=== PATIENT | female | born 1955 | race Caucasian/White ===

== ENCOUNTER 2018-12-04 18:19 | Emergency (ER) | payer OTHER ==
[2018-12-04] MEDS ORDERED: DIPH/PERTUSS(ACELL)/TETANUS VAC/PF 0.5 ML SYR (>=10YO) IM ONE (18:37)
[2018-12-04] MEDS ORDERED: LIDOCAINE 1% INJ-PF (10 MG/ML) 30 ML SDV INJ ONE (18:38)
--- NOTE | 2018-12-04 18:43 | ER Document Report ---
HPI - HPI Patient complains to provider of: laceration foot Time Seen by Provider: 12/04/18 18:37 Onset: Just prior to arrival Onset/Duration: Sudden Quality of pain: No pain Context: 63-year-old female presents emergency department with laceration to the top of her right foot. Reports a lawnmower fell on her foot. Reports they just moved here from [place] and they were moving the lawnmower. Is unsure of when her last tetanus was no active bleeding. Patient declines pain medication reports she is not hurting. Patient was able to ambulate without problems. Associated Symptoms: None Exacerbated by: Denies Relieved by: Denies Similar symptoms previously: No Recently seen / treated by doctor: No Past Medical History - General Information source: Patient - Social History Smoking Status: Unknown if Ever Smoked Frequency of alcohol use: None Drug Abuse: None Lives with: Family Family History: None Patient has suicidal ideation: No Patient has homicidal ideation: No Neurological Medical History: Reports: Hx Migraine Surgical Hx: Negative Vertical Provider Document - CONSTITUTIONAL Agree With Documented VS: Yes Exam Limitations: No Limitations General Appearance: WD/WN, No Apparent Distress - HEENT HEENT: Atraumatic, Normocephalic - NECK Neck: Supple - RESPIRATORY Respiratory: No Respiratory Distress - CARDIOVASCULAR Cardiovascular: Regular Rate - MUSCULOSKELETAL/EXTREMETIES Musculoskeletal/Extremeties: MAEW, FROM, Non-Tender - NEURO Level of Consciousness: Awake, Alert, Appropriate Motor/Sensory: No Motor Deficit - DERM Integumentary: Warm, Dry, Laceration - Approximately 15 mm horizontal vshaped with some skin avulsion laceration to the top of her right foot Course - Re-evaluation Re-evalutation: 12/04/18 19:05 Ankle X-Ray 12/04/18 18:37 IMPRESSION: NEGATIVE STUDY OF THE RIGHT ANKLE. NO RADIOGRAPHIC EVIDENCE OF ACUTE INJURY. Foot X-Ray 12/04/18 18:37 IMPRESSION: NEGATIVE STUDY OF THE RIGHT FOOT. NO RADIOGRAPHIC EVIDENCE OF ACUTE INJURY. 12/04/18 19:22 63-year-old female presents with laceration to the top of her right foot. She reports they are just moved to [place] and she dropped a lawnmower on it. Unsure last tetanus. X-rays negative for fracture. Patient was repaired with 5 sutures. She was instructed on signs and symptoms of infection and also instructed to keep the area clean and stay out of water. She verbalized understanding to all instructions. Dictation of this chart was performed using voice recognition software; therefore, there may be some unintended grammatical errors. - Vital Signs Vital signs: Temp Pulse Resp BP Pulse Ox 98.3 F 84 16 125/68 97 12/04/18 18:28 12/04/18 18:28 12/04/18 18:28 12/04/18 18:28 12/04/18 18:28 - Diagnostic Test Radiology reviewed: Image reviewed, Reports reviewed Procedures - Laceration/Wound Repair Right Foot Time completed: 19:23 Wound length (cm): 1.5 - He has been Wound's Depth, Shape: Superficial Anesthetic type: 1% Lidocaine Volume Anesthetic (mLs): 3 Wound Repaired With: Sutures Suture Size/Type: 4:0, Nylon Post-procedure NV exam normal: No Complications: No Adult Front & Back picture: 1 - 1.5 cm v shape laceration repaired with 5 sutures Discharge - Discharge Clinical Impression: Laceration of right foot Qualifiers: Encounter type: initial encounter Qualified Code(s): S91.311A - Laceration without foreign body, right foot, initial encounter Condition: Stable Disposition: HOME, SELF-CARE Instructions: Laceration Care (OM), Tetanus Immunization Given ([facility]) Additional Instructions: *You have been treated for a laceration on the top of your right foot Your x-ray was negative for a fracture *Monitor the laceration site for signs of infection such as increasing pain, redness, swelling, warmth *Keep the area clean, Take ibuprofen as indicated for pain *Follow-up here in 10 days for suture removal *Return to ED for signs of infection, worsening condition, changes, needs Forms: Elevated Blood Pressure
--- NOTE | 2018-12-04 19:00 | RADIOLOGY REPORT (SQ) ---
EXAM DESCRIPTION: FOOT RIGHT COMPLETE COMPLETED DATE/TIME: 12/04/2018 6:50 pm REASON FOR STUDY: laceration hit with mower COMPARISON: None. NUMBER OF VIEWS: Three views. TECHNIQUE: AP, lateral and oblique radiographic images acquired of the right foot. LIMITATIONS: None. FINDINGS: MINERALIZATION: Normal. BONES: No acute fracture or dislocation. No worrisome bone lesions. JOINTS: No effusions. SOFT TISSUES: No soft tissue swelling. No foreign body. OTHER: No other significant finding. IMPRESSION: NEGATIVE STUDY OF THE RIGHT FOOT. NO RADIOGRAPHIC EVIDENCE OF ACUTE INJURY. TECHNICAL DOCUMENTATION: JOB ID: [id number] [employer]- All Rights Reserved Reading location - IP/workstation name: [email or web address]
--- NOTE | 2018-12-04 19:00 | RADIOLOGY REPORT (SQ) ---
EXAM DESCRIPTION: ANKLE RIGHT COMPLETE COMPLETED DATE/TIME: 12/04/2018 6:50 pm REASON FOR STUDY: laceration hit with mower COMPARISON: None. NUMBER OF VIEWS: Three views. TECHNIQUE: AP, lateral, and oblique radiographic images acquired of the right ankle. LIMITATIONS: None. FINDINGS: MINERALIZATION: Normal. BONES: No acute fracture or dislocation. No worrisome bone lesions. JOINTS: No effusions. SOFT TISSUES: No soft tissue swelling. No foreign body. OTHER: No other significant finding. IMPRESSION: NEGATIVE STUDY OF THE RIGHT ANKLE. NO RADIOGRAPHIC EVIDENCE OF ACUTE INJURY. TECHNICAL DOCUMENTATION: JOB ID: [id number] [employer]- All Rights Reserved Reading location - IP/workstation name: [email or web address]
[2018-12-04 19:55] VITALS: BP 112/73
== END 2018-12-04 20:02 | disposition home or self-care (01) ==
LOC: ER 18:19
DX: S91.311A Laceration without foreign body, right foot, initial encounter (principal); W20.8XXA Other cause of strike by thrown, projected or falling object, initial encounter; Y93.E6 Activity, residential relocation; Z23 Encounter for immunization
CPT/HCPCS: 99283; 90471; 73610; 73630; 90715; 12001; J3490

== ENCOUNTER 2018-12-15 08:30 | Emergency (ER) | payer OTHER ==
[2018-12-15 08:35] VITALS: BP 127/66
--- NOTE | 2018-12-15 09:32 | ER Document Report ---
HPI - HPI Time Seen by Provider: 12/15/18 09:20 Pain Level: Denies Notes: Patient is a 63-year-old female who presents for suture removal status post placement 11 days ago to her right dorsal foot. Patient states that she has not had any pain, discharge, or swelling associated since then. Patient states that she is been pouring peroxide on it as well as triple antibiotic ointment every day since then. Denies any fever, URI, sore throat, chest pain, palpitations, syncope, cough, shortness of breath, wheeze, dyspnea, abdominal pain, nausea/vomiting/diarrhea, urinary retention, dysuria, hematuria, numbness/tingling, muscle paralysis/weakness, or rash. - ROS Systems Reviewed and Negative: Yes All other systems reviewed and negative - CONSTITUTIONAL Constitutional: DENIES: Fever, Chills - EENT EENT: DENIES: Sore Throat, Ear Pain, Eye problems - NEURO Neurology: DENIES: Headache, Weakness, Vision blurred, Dizzinesss / Vertigo - CARDIOVASCULAR Cardiovascular: DENIES: Chest pain - RESPIRATORY Respiratory: DENIES: Trouble Breathing, Coughing - GASTROINTESTINAL Gastrointestinal: DENIES: Abdominal Pain, Black / Bloody Stools - URINARY Urinary: DENIES: Dysuria, Urgency, Frequency - REPRODUCTIVE Reproductive: DENIES: : - MUSCULOSKELETAL Musculoskeletal: DENIES: Extremity pain Past Medical History - Social History Smoking Status: Never Smoker Chew tobacco use (# tins/day): No Frequency of alcohol use: Occasional Drug Abuse: None Family History: None Patient has suicidal ideation: No Patient has homicidal ideation: No Neurological Medical History: Reports: Hx Migraine Vertical Provider Document - CONSTITUTIONAL Agree With Documented VS: Yes Notes: PHYSICAL EXAMINATION: GENERAL: Well-appearing, well-nourished and in no acute distress. LUNGS: Breath sounds clear to auscultation bilaterally and equal. No wheezes rales or rhonchi. HEART: Regular rate and rhythm without murmurs, rubs, gallops. Musculoskeletal: FROM to passive/active. Strength 5+/5. Extremities: No cyanosis, clubbing, or edema b/l. Peripheral pulses 2+. Capillary refill less than 3 seconds. NEUROLOGICAL: Normal speech, normal gait. Normal sensory, motor exams PSYCH: Normal mood, normal affect. SKIN: the wound appears somewhat pink surrounding the wound without complete healing. The tissue does not appear significantly infected as there is no deep erythema, tenderness, induration, streaks, or purulence. - INFECTION CONTROL TRAVEL OUTSIDE OF THE [place] IN LAST 30 DAYS: No Course - Re-evaluation Re-evalutation: 12/15/18 09:31 Patient is an afebrile, well-hydrated, 63-year-old female who presents for suture removal to her right foot. Vitals are acceptable without significant tachycardia, tachypnea, or hypoxia. I suspect that the wound appears as it does because of the peroxide she has been putting on a daily. Wound instructions reviewed with the patient. Sutures will need to be removed today. I will place her on 5 days of antibiotics as precautionary. No further work-up warranted. Low suspicion for any other systemic or emergent condition at this time. Recheck with your PCM in 2 to 3 days. Return to the ED with any other worsening/concerning symptoms. - Vital Signs Vital signs: Temp Pulse Resp BP Pulse Ox 98.5 F 73 16 127/66 H 99 12/15/18 08:34 12/15/18 08:34 12/15/18 08:34 12/15/18 08:34 12/15/18 08:34 Discharge - Discharge Clinical Impression: Encounter for removal of sutures Condition: Stable Disposition: HOME, SELF-CARE Instructions: Suture Removal Additional Instructions: Keep the skin clean Wash with soap and water Tylenol/ibuprofen if needed Take medication as directed Monitor for any worsening symptoms Recheck with your PCM in 2-3 days Return to the ED with any worsening symptoms and/or development of fever, headache, chest pain, palpitations, syncope, shortness of breath, trouble breathing, abdominal pain, n/v/d, abscess, purulent discharge, red streaks, worsening swelling, or other worsening symptoms that are concerning to you. Prescriptions: Cephalexin Monohydrate [Keflex 500 mg Capsule] 500 mg PO BID #10 capsule Forms: Elevated Blood Pressure Referrals: [facility] ([facility]) [Provider Group] - Follow up as needed
== END 2018-12-15 09:37 | disposition home or self-care (01) ==
LOC: ER 08:30
DX: Z48.02 Encounter for removal of sutures (principal)